=== PATIENT | female | born 1945 | race Caucasian/White ===

== ENCOUNTER 2017-09-26 08:17 | Emergency (ER) | payer MEDICARE ==
--- NOTE | 2017-09-26 08:39 | ER Report ---
History and Physical Time Seen By MD: 08:39 HPI/ROS CHIEF COMPLAINT: diarrhea with blood in stool HISTORY OF PRESENT ILLNESS: This is a 71 year old female. She and her family are visiting [place] from [place]. They are staying at a [place]. Yesterday afternoon had onset of diarrhea, had bright red blood in the stool associated with this. She has had some episodes of vomiting as well. She has had some abdominal pain since the onset of the diarrhea, but was thinking the pain was due to the ongoing diarrhea. She had taken her usual Metamucil and some vitamins that she uses for regularity and then had gone on a horseback ride. She has had some chills and felt warm. Continued through the night, somewhat less this morning, but still happening. Her daughter gave her dicyclomine 10mg to try. They do note that the diet they are eating is different than usual for them. No other family members are sick. No history of GI bleeding in the past. Has had a colonoscopy and was reported as normal. No other bleeding such as blood in the urine, nosebleeds, bruising, or vaginal bleeding. REVIEW OF SYSTEMS: Constitutional: No fever or chills. Eyes: No vision changes. ENT: No sore throat. No congestion. Cardiovascular: No chest pain. No palpitations. Respiratory: No cough. No shortness of breath. Gastrointestinal: As above. Genitourinary: No dysuria. No hematuria. Musculoskeletal: No musculoskeletal pain Skin: No rashes. Neurological: No numbness. No weakness. Allergies: Coded Allergies: ondansetron (Verified Allergy, Intermediate, 09/26/17) Home Meds Active Scripts Promethazine Hcl (PROMETHAZINE HCL) 25 Mg Tablet, 25 MG PO Q8H Y for NAUSEA/ VOMITING, #20 TAB 0 Refills Prov:LONNIE KUMAR MD 09/26/17 Metronidazole (METRONIDAZOLE) 500 Mg Tablet, 500 MG PO Q8H, #30 TAB 0 Refills Prov:LONNIE KUMAR MD 09/26/17 Levofloxacin 500 Mg Tab (LEVOFLOXACIN 500 MG TAB) 500 Mg Tablet, 500 MG PO QDAY , #10 TAB 0 Refills Prov:LONNIE KUMAR MD 09/26/17 Reported Medications Mu-Vits-Min Th/Lycopene/Lutein (CENTRUM SILVER TABLET) 1 Each Tablet, 1 EACH PO QDAY 09/26/17 Omeprazole Magnesium (PRILOSEC OTC) 20 Mg Tablet.dr, 1 TAB PO QHS, TAB 09/26/17 Risperidone (RISPERIDONE) 2 Mg Tablet, 2 MG PO QHS 09/26/17 Fluoxetine Hcl (FLUOXETINE HCL) 20 Mg Capsule, 20 MG PO QDAY, CAPSULE 09/26/17 Levothyroxine Sodium (SYNTHROID) 88 Mcg Tablet, 88 MCG PO QDAY 09/26/17 Past Medical/Surgical History Hypothyroidism, history of total knee replacement, tonsillectomy. Reviewed Nurses Notes: Yes Constitutional Vital Sign - Last 24 Hours 09/26/17 09/26/17 09/26/17 09/26/17 08:27 08:36 08:47 09:04 Temp 98.6 Pulse 91 81 Resp 20 B/P (MAP) 109/60 109/60 (76) 124/68 (86) Pulse Ox 95 96 O2 Delivery Room Air 09/26/17 09/26/17 09/26/17 09/26/17 09:17 09:30 09:35 10:00 Pulse 80 ??? B/P (MAP) 131/71 (91) 133/68 (89) Pulse Ox 91 09/26/17 09/26/17 09/26/17 09/26/17 10:05 10:09 10:30 10:35 Pulse ??? 84 B/P (MAP) 137/73 (94) 135/75 (95) Pulse Ox 92 09/26/17 09/26/17 09/26/17 09/26/17 11:00 11:05 11:10 11:30 Pulse 85 79 B/P (MAP) 128/74 (92) 119/63 (81) Pulse Ox 92 93 Intake and Output 09/26/17 09/26/17 09/27/17 15:00 23:00 07:00 Intake Total 1000 ml Balance 1000 ml Physical Exam General Appearance: The patient is alert. No acute distress. Non-toxic in appearance. Eyes: Pupils are equal, round. Reactive to light. No pallor, injection or icterus. Extraocular movements are intact. ENT: Mucous membranes are moist. Normal oral mucosa. Posterior oropharynx is normal. Normal tympanic membranes and canals. Neck: Supple and non tender. Respiratory: Lungs are clear to auscultation. Cardiovascular: Regular rate and rhythm. No murmurs, gallops or rubs. Normal capillary refill. Gastrointestinal: Abdomen is soft, diffuse discomfort with palpation. Nondistended. No rebound or guarding. No masses or organomegaly. Hyperactive bowel sounds. No costovertebral angle tenderness with percussion. Neurological: Alert and oriented x3. No focal neurologic deficits. Skin: Warm and dry. DIFFERENTIAL DIAGNOSIS: After history and physical exam, differential diagnosis was considered for diarrhea and vomiting with some bright red blood indicating lower GI bleeding including but not limited to diverticulosis/diverticulitis, colitis, food poisoning, gastroenteritis with other problem to cause bleeding such as tumor, AVM, hemorrhoid and anal fissure. Medical Decision Making Data Points Result Diagram: 09/26/17 0856 09/26/17 0856 Laboratory Hematology Test 09/26/17 08:32 09/26/17 08:56 Urine Color Yellow Urine Clarity Clear Urine pH 6.0 pH (4.8-9.5) Urine Specific Webb 1.006 Urine Protein Negative mg/dL (NEGATIVE) Urine Glucose (UA) Negative mg/dL (NEGATIVE) Urine Ketones Negative mg/dL (NEGATIVE) Urine Blood Moderate (NEGATIVE) Urine Nitrite Negative (NEGATIVE) Urine Bilirubin Negative (NEGATIVE) Urine Urobilinogen Negative mg/dL (0.2-1.9) Urine Leukocyte Esterase Negative (NEGATIVE) Urine RBC <1 /HPF (0-2/HPF) Urine WBC <1 /HPF (0-5/HPF) Urine Squamous Epithelial Cells Many /LPF (</=FEW) Urine Bacteria Negative /HPF (NONE-FEW) Urine Mucus None /HPF (NONE-FEW) Stool Leukocytes, Qualitative Positive Clostridium Difficile Toxin A & B Negative Clostridium difficile Antigen Negative Red Blood Count 4.08 M/uL (4.17-5.56) Mean Corpuscular Volume 92.2 fL (80.0-96.0) Mean Corpuscular Hemoglobin 31.5 pg (26.0-33.0) Mean Corpuscular Hemoglobin Concent 34.2 g/dL (32.0-36.0) Red Cell Distribution Width 13.5 % (11.5-14.5) Mean Platelet Volume 8.8 fL (7.2-11.1) Neutrophils (%) (Auto) 87.9 % (39.4-72.5) Lymphocytes (%) (Auto) 4.4 % (17.6-49.6) Monocytes (%) (Auto) 7.2 % (4.1-12.4) Eosinophils (%) (Auto) 0.2 % (0.4-6.7) Basophils (%) (Auto) 0.3 % (0.3-1.4) Nucleated RBC Relative Count (auto) 0.0 /100WBC Neutrophils # (Auto) 16.4 K/uL (2.0-7.4) Lymphocytes # (Auto) 0.8 K/uL (1.3-3.6) Monocytes # (Auto) 1.4 K/uL (0.3-1.0) Eosinophils # (Auto) 0.0 K/uL (0.0-0.5) Basophils # (Auto) 0.0 K/uL (0.0-0.1) Nucleated RBC Absolute Count (auto) 0.01 K/uL Peripheral Blood Smear No Y/N Prothrombin Time 14.2 seconds (12.0-14.4) Prothromb Time International Ratio 1.09 Activated Partial Thromboplast Time 28 seconds (23-35) Sodium Level 132 mmol/L (137-145) Potassium Level 4.0 mmol/L (3.5-5.0) Chloride Level 97 mmol/L (98-107) Carbon Dioxide Level 27 mmol/L (22-31) Blood Urea Nitrogen 19 mg/dl (7-18) Creatinine 0.90 mg/dl (0.52-1.04) Glomerular Filtration Rate Calc > 60.0 Random Glucose 127 mg/dl (75-110) Calcium Level 9.6 mg/dl (8.4-10.2) Total Bilirubin 1.2 mg/dl (0.2-1.3) Aspartate Amino Transf (AST/SGOT) 37 U/L (0-35) Alanine Aminotransferase (ALT/SGPT) 22 U/L (0-56) Alkaline Phosphatase 83 U/L (0-126) Total Protein 6.7 g/dl (6.3-8.2) Albumin 3.6 g/dl (3.5-5.0) Amylase Level 78 U/L (0-110) Lipase 41 U/L (23-300) Chemistry Test 09/26/17 08:32 09/26/17 08:56 Urine Color Yellow Urine Clarity Clear Urine pH 6.0 pH (4.8-9.5) Urine Specific Webb 1.006 Urine Protein Negative mg/dL (NEGATIVE) Urine Glucose (UA) Negative mg/dL (NEGATIVE) Urine Ketones Negative mg/dL (NEGATIVE) Urine Blood Moderate (NEGATIVE) Urine Nitrite Negative (NEGATIVE) Urine Bilirubin Negative (NEGATIVE) Urine Urobilinogen Negative mg/dL (0.2-1.9) Urine Leukocyte Esterase Negative (NEGATIVE) Urine RBC <1 /HPF (0-2/HPF) Urine WBC <1 /HPF (0-5/HPF) Urine Squamous Epithelial Cells Many /LPF (</=FEW) Urine Bacteria Negative /HPF (NONE-FEW) Urine Mucus None /HPF (NONE-FEW) Stool Leukocytes, Qualitative Positive Clostridium Difficile Toxin A & B Negative Clostridium difficile Antigen Negative White Blood Count 18.7 k/uL (4.5-11.0) Red Blood Count 4.08 M/uL (4.17-5.56) Hemoglobin 12.9 g/dL (12.0-16.0) Hematocrit 37.6 % (34.0-47.0) Mean Corpuscular Volume 92.2 fL (80.0-96.0) Mean Corpuscular Hemoglobin 31.5 pg (26.0-33.0) Mean Corpuscular Hemoglobin Concent 34.2 g/dL (32.0-36.0) Red Cell Distribution Width 13.5 % (11.5-14.5) Platelet Count 240 K/uL (150-450) Mean Platelet Volume 8.8 fL (7.2-11.1) Neutrophils (%) (Auto) 87.9 % (39.4-72.5) Lymphocytes (%) (Auto) 4.4 % (17.6-49.6) Monocytes (%) (Auto) 7.2 % (4.1-12.4) Eosinophils (%) (Auto) 0.2 % (0.4-6.7) Basophils (%) (Auto) 0.3 % (0.3-1.4) Nucleated RBC Relative Count (auto) 0.0 /100WBC Neutrophils # (Auto) 16.4 K/uL (2.0-7.4) Lymphocytes # (Auto) 0.8 K/uL (1.3-3.6) Monocytes # (Auto) 1.4 K/uL (0.3-1.0) Eosinophils # (Auto) 0.0 K/uL (0.0-0.5) Basophils # (Auto) 0.0 K/uL (0.0-0.1) Nucleated RBC Absolute Count (auto) 0.01 K/uL Peripheral Blood Smear No Y/N Prothrombin Time 14.2 seconds (12.0-14.4) Prothromb Time International Ratio 1.09 Activated Partial Thromboplast Time 28 seconds (23-35) Glomerular Filtration Rate Calc > 60.0 Calcium Level 9.6 mg/dl (8.4-10.2) Total Bilirubin 1.2 mg/dl (0.2-1.3) Aspartate Amino Transf (AST/SGOT) 37 U/L (0-35) Alanine Aminotransferase (ALT/SGPT) 22 U/L (0-56) Alkaline Phosphatase 83 U/L (0-126) Total Protein 6.7 g/dl (6.3-8.2) Albumin 3.6 g/dl (3.5-5.0) Amylase Level 78 U/L (0-110) Lipase 41 U/L (23-300) Coagulation Test 09/26/17 08:56 Prothrombin Time 14.2 seconds Prothromb Time International Ratio 1.09 Activated Partial Thromboplast Time 28 seconds Urinalysis Test 09/26/17 08:32 Urine Color Yellow Urine Clarity Clear Urine pH 6.0 pH (4.8-9.5) Urine Specific Webb 1.006 Urine Protein Negative mg/dL (NEGATIVE) Urine Glucose (UA) Negative mg/dL (NEGATIVE) Urine Ketones Negative mg/dL (NEGATIVE) Urine Blood Moderate (NEGATIVE) Urine Nitrite Negative (NEGATIVE) Urine Bilirubin Negative (NEGATIVE) Urine Urobilinogen Negative mg/dL (0.2-1.9) Urine Leukocyte Esterase Negative (NEGATIVE) Urine RBC <1 /HPF (0-2/HPF) Urine WBC <1 /HPF (0-5/HPF) Urine Squamous Epithelial Cells Many /LPF (</=FEW) Urine Bacteria Negative /HPF (NONE-FEW) Urine Mucus None /HPF (NONE-FEW) EKG/Imaging Imaging ABDOMEN/PELVIS WITH CONTRAST HISTORY: abd pain, n/v/d, red blood in stool TECHNIQUE: Following administration of IV contrast contiguous axial images acquired through the abdomen/pelvis. Coronal and sagittal reformatting also performed. Dose Lowering Technique One of the following dose optimization techniques was utilized in the performance of this exam: Automated exposure control; adjustment of the mA and/ or kV according to the patient's size; or use of an iterative reconstruction technique. Specific details can be referenced in the facility's radiology CT exam operational policy. CONTRAST: 75 mL Isovue-370 COMPARISON: None. FINDINGS: Visualized lung bases: Negative. Hepatobiliary: Negative. Spleen: Negative. Adrenals: Mild thickening of the left adrenal gland Pancreas: Negative. Kidneys ureters or bladder: Negative. Genitalia: Retroverted very heterogeneous appearing uterus GI: There is diffuse wall thickening and edema seen throughout the colon from the mid ascending colon to the sigmoid colon consistent with diffuse colitis. The small bowel appears unremarkable. There is a moderate size hiatal hernia. . Cecum is moderately distended with fecal material and projects in the midline of the upper abdomen. Vessels/spaces/nodes: Negative. Bones/soft tissues: Mild to moderate spondylotic changes L5-S1. Mild loss of height of the superior endplate of L2 Additional findings: None pertinent. IMPRESSION: There is diffuse wall thickening and edema seen throughout the colon from the mid ascending colon to the sigmoid colon consistent with diffuse colitis. The cecum is moderately distended with fecal material projects in the midline of the upper abdomen Moderate size hiatal hernia The uterus is retroverted and appears very heterogeneous. Correlation with pelvic ultrasound are [facility] consultation recommended Report Dictated By: Shauna Luong MD at 09/26/2017 9:58 AM ED Course/Re-evaluation Clinical Indication for ER IV: Hydration, IV Access ED Course After initial history and physical exam, an IV was started and the patient was given a liter of normal saline. She was not having any nausea and did not need any anti-emetics at this time. Stool was obtained which did show some red blood clots present. Urinalysis and blood work was obtained. The patient was sent for a CT scan because of that discomfort she was having as well as the question of fevers along with the diarrhea and vomiting. Blood work returned and showed an elevated white count with a left shift, normal H&H and normal platelets. Her coagulation factors were normal. Her metabolic panel showed a slightly low sodium and her BUN/creatinine to creatinine ratio was elevated suggesting dehydration. She also had a urinalysis which did not show any red or white cells or bacteria, was clear and had a non- concentrated specific gravity. Liver function tests were normal on the metabolic panel as well. Stool was sent for culture, C. difficile testing, white count, and ova and parasites. CT scan was obtained. It did show thickening of the colon from the ascending colon through the descending. Small bowel look normal. There was some heterogeneity of the uterus and endometrium which will require further evaluation. Reevaluation of the patient shows that she is feeling comfortable. No further fever or chills. Still with some discomfort. No further nausea or vomiting. Stool studies showed negative C diff and many leukocytes. Culture and ova and parasites are pending. The patient did get a liter of normal saline and then later 1000mg of Tylenol. She is feeling better and vitals signs were stable so could be discharge. She will begin Levaquin 500mg once a day and Metronidazole 500mg three times a day, both for 10 days. Phenergan for nausea. Clear liquids for 24 hours then advance to bland and then to regular diet as tolerated. Spent time explaining the results to the patient and her and answering questions. Discussed reasons to return to the ER for further treatment or admission if needed. Decision to Disposition Date: Sep 26, 2017 Decision to Disposition Time: 11:20 Depart Departure Latest Vital Signs Vital Signs Date Time Temp Pulse Resp B/P (MAP) Pulse Ox O2 Delivery O2 Flow Rate FiO2 09/26/17 11:30 119/63 (81) 09/26/17 11:10 79 93 09/26/17 08:27 98.6 20 Room Air Impression: Primary Impression: Colitis Condition: Improved Disposition: HOME OR SELF-CARE New Scripts Promethazine Hcl (PROMETHAZINE HCL) 25 Mg Tablet 25 MG PO Q8H Y for NAUSEA/VOMITING, #20 TAB 0 Refills Prov: LONNIE KUMAR MD 09/26/17 Metronidazole (METRONIDAZOLE) 500 Mg Tablet 500 MG PO Q8H, #30 TAB 0 Refills Prov: LONNIE KUMAR MD 09/26/17 Levofloxacin 500 Mg Tab (LEVOFLOXACIN 500 MG TAB) 500 Mg Tablet 500 MG PO QDAY, #10 TAB 0 Refills Prov: LONNIE KUMAR MD 09/26/17 Patient Instructions: Infectious Colitis (ED) Additional Instructions: You have an infection in the colon, along the transverse and descending colon, seen as thickening of the colon on CT scan. Your white blood cell count was elevated, which also indicated an infection. We do not know the cause of this at this time. A stool culture and ova and parasites study is pending. Your C. diff testing was negative. Start the following two antibiotics: Levaquin 500mg once a day for 10 days. Take 30 minutes prior to eating or 2 hours after eating. Metronidazole 500mg three times a day for 10 days. This can cause some nausea. Stick with a liquid diet for the next 24 hours, then advance to a bland diet and then back to regular over the next few days. Take Phenergan 25mg, one every 8 hours as needed for nausea and vomiting. Take Tylenol or Ibuprofen as needed for pain. Return for worsening nausea or vomiting and inability to take fluids or medications, worsening pain, or worsening fevers/chills. LONNIE KUMAR MD Sep 26, 2017 08:39
[2017-09-26] MEDS ORDERED: OMEP-218 PO (08:49)
[2017-09-26] MEDS ORDERED: LEVO88TA43 PO (08:49)
[2017-09-26] MEDS ORDERED: MULT-27 PO (08:49)
[2017-09-26] MEDS ORDERED: FLUO-177 PO (08:49)
[2017-09-26] MEDS ORDERED: RISP2TAB70 PO (08:49)
[2017-09-26] MEDS ORDERED: NS(*) 0.9% 1000 ML BAG 1,000 ML IV ONE (09:00)
[2017-09-26 09:17] LABS: PLATELET COUNT, AUTOMATED 240 K/uL (150-450)
[2017-09-26 09:23] LABS: INR 1.09
[2017-09-26] MEDS ORDERED: IOPAMIDOL 76% 75 ML INFUS BTL 75 ML ONE (09:37)
--- NOTE | 2017-09-26 10:09 | RADIOLOGY IMAGING REPORT ---
FACILITY: [facility] - [place] PATIENT NAME: Lucila Rees : 1945 MR: [id number] V: [id number] EXAM DATE: ORDERING PHYSICIAN: LONNIE KUMAR TECHNOLOGIST: Location: [facility] [place] Patient: Lucila Rees : 1945 Visit/Account:[id number] Date of Sevice: 09/26/2017 ABDOMEN/PELVIS WITH CONTRAST HISTORY: abd pain, n/v/d, red blood in stool TECHNIQUE: Following administration of IV contrast contiguous axial images acquired through the abdom en/pelvis. Coronal and sagittal reformatting also performed. Dose Lowering Technique One of the following dose optimization techniques was utilized in the performance of this exam: Autom ated exposure control; adjustment of the mA and/or kV according to the patient's size; or use of an i terative reconstruction technique. Specific details can be referenced in the facility's radiology C T exam operational policy. CONTRAST: 75 mL Isovue-370 COMPARISON: None. FINDINGS: Visualized lung bases: Negative. Hepatobiliary: Negative. Spleen: Negative. Adrenals: Mild thickening of the left adrenal gland Pancreas: Negative. Kidneys ureters or bladder: Negative. Genitalia: Retroverted very heterogeneous appearing uterus GI: There is diffuse wall thickening and edema seen throughout the colon from the mid ascending colo n to the sigmoid colon consistent with diffuse colitis. The small bowel appears unremarkable. There is a moderate size hiatal hernia. . Cecum is moderately distended with fecal material and projects in the midline of the upper abdomen. Vessels/spaces/nodes: Negative. Bones/soft tissues: Mild to moderate spondylotic changes L5-S1. Mild loss of height of the superior endplate of L2 Additional findings: None pertinent. IMPRESSION: There is diffuse wall thickening and edema seen throughout the colon from the mid ascending colon to the sigmoid colon consistent with diffuse colitis. The cecum is moderately distended with fecal mate rial projects in the midline of the upper abdomen Moderate size hiatal hernia The uterus is retroverted and appears very heterogeneous. Correlation with pelvic ultrasound are [employer] consultation recommended Report Dictated By: Shauna Luong MD at 09/26/2017 9:58 AM Report E-Signed By: Shauna Luong MD at 09/26/2017 10:05 AM WSN:[email or web address]
[2017-09-26] MEDS ORDERED: ACETAMINOPHEN 500 MG TAB PO ONE (10:50)
[2017-09-26] MEDS ORDERED: METR-160 PO (11:22)
[2017-09-26] MEDS ORDERED: LEVO500T83 PO (11:22)
[2017-09-26] MEDS ORDERED: PROM-110 PO (11:22)
[2017-09-26 11:30] VITALS: BP 119/63
== END 2017-09-26 11:47 | disposition home or self-care (01) ==
LOC: ER 08:31
DX: K52.9 Noninfective gastroenteritis and colitis, unspecified (principal)
CPT/HCPCS: 74177; 81001; 82150; 83630; 83690; 85025; 85610; 85730; 87045; 87177; 87324; 87449; 96360; 99284; A9270; J7030; Q9967; 82040; 82247; 82310; 82374; 82435; 82565; 82947; 84075; 84132; 84155; 84295; 84450; 84460; 84520